=== PATIENT | female | born 1960 | race African-American/Black ===

== ENCOUNTER → 2016-09-28 | Outpatient (CLI) | payer BC | END | disposition home or self-care (01) | LOC: LAB 08:18 | PROVIDERS: ATTEND General Practice | DX: R53.83 Other fatigue (principal); I10 Essential (primary) hypertension ==

== ENCOUNTER → 2016-10-19 | Outpatient (CLI) | payer BC ==
--- NOTE | 2016-10-22 07:49 | MAM ---
History: Well woman exam. Date of exam: 10/19/2016 Services provided: Bilateral full field digital screening mammography. CAD, the images were reviewed with R2 computer aided detection. FINDINGS: Glandular tissue is scattered nodular pattern. No prior study is currently available. Low-density nodules retroareolar left 6:00 approximately 7 cm from the nipple are demonstrated. There are scattered benign-appearing calcifications. No architectural distortion. No mammographic abnormality on the right. IMPRESSION: Incomplete exam Recommendation: Directed left breast sonography. BIRAD CATEGORY: 0 INCOMPLETE Electronically signed by: Annie Mora MD 10/22/2016 7:49 AM CDT
== END | disposition home or self-care (01) ==
LOC: MAMMO 09:51
PROVIDERS: ATTEND General Practice
DX: Z12.31 Encounter for screening mammogram for malignant neoplasm of breast (principal)

== ENCOUNTER → 2016-12-11 | Outpatient (CLI) | payer BC ==
--- NOTE | 2016-12-11 15:40 | US ---
History: Screening evaluation with retroareolar 6:00 left breast nodules. DATE OF SERVICE: 12/11/2016 Services provided: Targeted Limited left breast sonography. FINDINGS: Directed ultrasound examination performed by the technologist is correlated with baseline mammogram from 10/19. The ultrasound examination demonstrates two small benign-appearing nodules with morphology suggestive of lymph nodes in the left breast 6:00. No internal vascularity or sonographic abnormality is shown. Altogether nodules measure 14 mm in size. IMPRESSION: Probably benign exam. Suspected intramammary lymph nodes left breast 6:00. Sonographically benign appearance. Recommendation: Six month follow-up left breast ultrasound. Findings and recommendations were communicated to the patient. BIRAD CATEGORY: 3 PROBABLY BENIGN Electronically signed by: Annie Mora MD 12/11/2016 3:40 PM CDT Workstation: [id number]
== END | disposition home or self-care (01) ==
LOC: MAMMO 14:49
PROVIDERS: ATTEND General Practice
DX: R92.8 Other abnormal and inconclusive findings on diagnostic imaging of breast (principal)

== ENCOUNTER → 2017-10-29 | Outpatient (CLI) | payer BC ==
--- NOTE | 2017-10-30 13:38 | US ---
EXAM DESCRIPTION: Breast,Left: Ultrasound CLINICAL HISTORY: 57 yearsFemale 6 MONTH FOLLOW UP COMPARISON: Digital 3-D tomosynthesis diagnostic bilateral breast on the same visit. Left breast ultrasound 12/11/2016. TECHNIQUE: Transcutaneous scanning of the left breast utilizing two-dimensional and Doppler modes. Scanning performed by the seafood technology specialist and Dr. Wick. FINDINGS: Scanning at the 600 clock position of the left breast 9 cm from the nipple. 5.6 x 3.9 mm hypoechoic structure with central echogenicity and mixed posterior acoustic features. Parallel orientation. Most likely a lymph node. No distinct solid mass or cyst. No parenchymal edema or large calcifications. No abnormal soft tissue vascularity. No skin changes. IMPRESSION: BIRAD CATEGORY: 2 BENIGN Please refer to 3-D tomosynthesis diagnostic bilateral mammographic study and examination on the same visit. The FINDINGS and the FOLLOW-UP plan were reviewed in person with the patient after the examination. Written communication explaining the IMPRESSION and FOLLOW-UP will be mailed to the patient and referring care provider. Electronically signed by: Ramos Wick MD 10/30/2017 1:36 PM CDT
--- NOTE | 2017-10-31 08:29 | MAM ---
EXAM DESCRIPTION: 3D Diagnostic, Bilateral: Digital Mammography CLINICAL HISTORY: 57 yearsFemaleABNORMAL MAMMOGRAM bilateral mass or lymph nodes in the left breast.. COMPARISON: Two-dimensional bilateral breast screening October 19 2016. Diagnostic left breast digital mammography and ultrasound 12/11/2016.. Reports from prior examinations also reviewed. TECHNIQUE: Bilateral CC LM MLO projection full-field images, 3-D tomosynthesis digital mammographic technique. Also bilateral synthesized CC MLO LM full-field images. CAD not utilized. FINDINGS: The breast parenchymal density pattern is: Scattered areas of fibroglandular density. No skin thickening or nipple retraction fibroglandular tissue is nodular bilaterally. Bilateral solitary microcalcifications. Again noted are masslike areas in the middle third of the left breast at the 600 clock position approximately 7 cm from the nipple. No new focal, stellate mass or density, focal asymmetry , and no suspicious microcalcifications bilaterally. Stable mammograms compared to prior study, taking into account differences in mammographic technique Ultrasound: Scanning at the 600 clock position of the left breast 9 cm from the nipple. 5.6 x 3.9 mm hypoechoic structure with central echogenicity and mixed posterior acoustic features. Parallel orientation. Most likely a lymph node. No distinct solid mass or cyst. No parenchymal edema or large calcifications. No abnormal soft tissue vascularity. No skin changes. IMPRESSION: BI-RADS CATEGORY: 2 - BENIGN FINDINGS. FOLLOW UP: Routine digital bilateral screening, one year interval from October 2017. The FINDINGS and the FOLLOW-UP plan were reviewed in person with the patient after the examination. Written communication explaining the IMPRESSION and FOLLOW-UP will be mailed to the patient and referring care provider. According to the [employer], yearly mammograms are recommended starting at age 40 and continuing as long as a woman is in good health. Any breast change noted on a breast self-exam should be reported promptly to the patient's healthcare provider. Breast MRI is recommended for women with an approximately 20-25% or greater lifetime risk of breast cancer, including women with a strong family history of breast or ovarian cancer and women who have been treated for Hodgkin's disease. A negative mammographic report should not delay tissue diagnosis in patients with significant clinical history or physical findings. Extremely dense breast tissue limits the sensitivity of digital mammography. Electronically signed by: Ramos Wick MD 10/31/2017 8:28 AM CDT
== END ==
LOC: MAMMO 08:31
PROVIDERS: ATTEND General Practice
DX: R92.8 Other abnormal and inconclusive findings on diagnostic imaging of breast (principal)
CPT/HCPCS: 76641; 77066; G0279

== ENCOUNTER 2017-11-15 09:58 | Emergency (ER) | payer BC ==
[2017-11-15 10:10] VITALS: TEMP 98
--- NOTE | 2017-11-15 10:25 | ED.PDOC ---
History of Present Illness - General Chief Complaint: Back Pain or Injury Stated Complaint: Upper back discomfort Time Seen by Provider: 11/15/17 10:11 Source: patient Exam Limitations: no limitations Additional Information: C/O PAIN TO L SCAPULAR AREA. PAIN STARTED X 4 DAYS AGO. FELL OFF PORCH 3 DAYS AGO LANDED ON L SHOULDER C/O INCREASING PAIN. NO HEAD TRAUMA NO OTHER C/O'S - History of Present Illness Timing/Duration: other - 4 DAYS Quality/Severity: moderate Back Pain Location: other - L SCAPULAR AREA Improving Factors: nothing Worsening Factors: movement Associated Symptoms: other - NONE, HAS HAD SIMILAR SX'S IN PAST WHICH WERE TREATED WITH MUSCLE RELAXERS. Allergies/Adverse Reactions: Allergies Penicillins Allergy (Verified 11/15/17 10:10) Anaphylaxis Home Medications: Ambulatory Orders Cyclobenzaprine HCl [Flexeril] 10 mg PO TID PRN #15 tab 11/15/17 Indomethacin 50 mg PO TID PRN #14 cap 11/15/17 Review of Systems - Review of Systems Constitutional: Denies: chills, fever EENTM: States: no symptoms reported Respiratory: States: no symptoms reported. Denies: cough, short of breath Cardiology: Denies: chest pain, syncope Gastrointestinal/Abdominal: Denies: abdominal pain, nausea, vomiting Genitourinary: States: no symptoms reported Musculoskeletal: Denies: back pain, neck pain Skin: States: other - C/O SWELLING POST L SCAPULAR AREA. Denies: rash Neurological: Denies: numbness, paresthesia, weakness Endocrine: States: no symptoms reported Hematologic/Lymphatic: States: no symptoms reported Past Medical History (General) - Patient Medical History Hx Stroke: No Hx Congestive Heart Failure: No Hx Hypertension: Yes Hx Diabetes: No Surgical History: gastric bypass, tonsillectomy, Hysterectomy, other - Vaccination History Hx Influenza Vaccination: No Hx Pneumococcal Vaccination: No - Social History Hx Tobacco Use: Yes - 06/30/2017 Family Medical History - Family History Mother Living Status: Hx Family Hypertension: Yes Hx Family Stroke: Yes Physical Exam - Physical Exam General Appearance: Alert, No apparent distress Eyes, Ears, Nose, Throat Exam: PERRL/EOMI, normal ENT inspection, other - NO EVIDENCE OF HEAD TRAUMA Neck Exam: non-tender, full range of motion, normal alignment, normal inspection Cardiovascular/Respiratory: regular rate, rhythm, no M/R/G Gastrointestinal/Abdominal: non tender, soft, no organomegaly Back Exam: normal inspection, other - MILD SPASM L POST SCAPULAR AREA, NO C/T/L SPINE TTP, NO BONY ABN/TTP, Extremity Exam: no evidence of injury, other - NVI, NO EVIDENCE OF EXT TRAUMA Neurologic: no motor/sensory deficits, alert, normal mood/affect Skin Exam: normal color, warm/dry, other - NO ECCHYMOSIS, Progress - EKG/XRAY/CT XRAY: SHOULDER, RUIZ Departure - Departure Clinical Impression: Muscular pain Hypertension Qualifiers: Hypertension type: essential hypertension Qualified Code(s): I10 - Essential ( primary) hypertension Time of Disposition: 11:01 Disposition: Discharge to Home or Self Care Condition: Excellent Departure Forms: ED Discharge - Pt. Copy, Patient Portal Self Enrollment Instructions: DI for Muscle Strain Referrals: Pablo Ortiz MD [Primary Care Provider] - 1-2 Weeks Prescriptions: Cyclobenzaprine HCl [Flexeril] 10 mg PO TID PRN #15 tab PRN Reason: Pain Indomethacin 50 mg PO TID PRN #14 cap PRN Reason: Pain Home Medications: Ambulatory Orders Cyclobenzaprine HCl [Flexeril] 10 mg PO TID PRN #15 tab 11/15/17 Indomethacin 50 mg PO TID PRN #14 cap 11/15/17
[2017-11-15] MEDS ORDERED: KETOROLAC TROMETHAMINE INJ 60 MG/2 ML VIAL IM ONE (10:32)
[2017-11-15] MEDS ORDERED: ORPHENADRINE CITRATE 30 MG/ML AMP IM ONE (10:32)
--- NOTE | 2017-11-15 11:06 | RAD ---
EXAM DESCRIPTION: Shoulder,Left 2 or More Views CLINICAL HISTORY: FALL WITH PAIN SCAPULAR AREA COMPARISON: None. TECHNIQUE: 3 views left FINDINGS: Mild degenerative changes are observed in the acromioclavicular joint. There is minimal subchondral cyst formation in the humeral head at the insertion of the rotator cuff. No fracture or dislocation is seen. IMPRESSION: Degenerative changes are observed in the shoulder. No fracturing is detected. Electronically signed by: Puma Quintero MD 11/15/2017 11:04 AM CDT
[2017-11-15 11:33] VITALS: BP 125/76; O2SAT 100
== END 2017-11-15 11:31 | disposition home or self-care (01) ==
LOC: ER 09:58
DX: M25.512 Pain in left shoulder (principal); I10 Essential (primary) hypertension; Z87.891 Personal history of nicotine dependence
CPT/HCPCS: 73030; J1885; J2360

== ENCOUNTER → 2020-05-25 | Outpatient (CLI) | payer OTHER ==
--- NOTE | 2020-05-26 16:17 | MAM ---
EXAM DESCRIPTION: 3D Screening BILATERAL : Digital Mammography. CLINICAL HISTORY: 60 years Female screening history sheet. Lifetime risk of developing breast cancer (Tyrer-Cuzick model)(%): Not calculated COMPARISON: Bilateral diagnostic digital breast tomosynthesis and left breast ultrasound October 2017. Diagnostic digital breast 2-D imaging and left breast ultrasound December 2016. 2-D screening October 2016. TECHNIQUE: Bilateral CC and MLO projection full-field images, digital tomosynthesis mammographic technique. Bilateral digital 2-D full-field MLO images. CAD available for 2-D images. FINDINGS: The breast parenchymal density pattern is: Scattered areas of fibroglandular density. No skin thickening or nipple retraction. Solitary microcalcifications. Nodular densities in the middle left breast have decreased in size and density since the prior study. Axillary nodes. No new focal, stellate mass or density, focal asymmetry , and no suspicious microcalcifications bilaterally. Stable mammograms compared to prior study. Taking into account, differences in mammographic technique. IMPRESSION: Benign exam. BIRAD CATEGORY: 2 BENIGN FINDINGS. RECOMMENDATIONS: FOLLOW UP: Routine digital bilateral mammographic screening, one year interval from May 2020. Written communication explaining the IMPRESSION and follow-up, will be mailed to the patient and referring health care provider. According to the [employer], yearly mammograms are recommended starting at age 40 and continuing as long as a woman is in good health. Any breast change noted on a breast self-exam should be reported promptly to the patient's healthcare provider. Breast MRI is recommended for women with an approximately 20-25% or greater lifetime risk of breast cancer, including women with a strong family history of breast or ovarian cancer and women who have been treated for Hodgkin's disease. A negative mammographic report should not delay tissue diagnosis in patients with significant clinical history or physical findings. Extremely dense breast tissue limits the sensitivity of digital mammography. Electronically signed by: Ramos Wick MD 05/26/2020 4:15 PM MAILS SUPERVISOR
== END ==
LOC: MAMMO 09:00
PROVIDERS: ATTEND Family Medicine
DX: Z12.31 Encounter for screening mammogram for malignant neoplasm of breast (principal)

== ENCOUNTER 2020-08-26 17:34 | Emergency (ER) | payer OTHER, SELFPAY ==
[2020-08-26] MEDS ORDERED: PANTOPRAZOLE SODIUM IV 40 MG VIAL IV ONE (19:13)
[2020-08-26] MEDS ORDERED: SODIUM CHLORIDE 0.9% 1000ML 1,000 ML IVS ONE (19:13)
[2020-08-26] MEDS ORDERED: PROMETHAZINE HCL INJ 25 MG in SODIUM CHLORIDE 0.9% 50ML 50 ML IVPB ONE (19:13)
--- NOTE | 2020-08-26 21:54 | CT ---
EXAMINATION: CT of the abdomen and pelvis with IV contrast INDICATION: History of gastric bypass. Nausea and vomiting COMPARISON: None. TECHNIQUE: Axial CT scan of the abdomen and pelvis was obtained after the uneventful administration of 50 mL of intravenous contrast. Coronal and sagittal reformats were provided. This CT exam was performed using one or more of the following dose reduction techniques: Automated exposure control, Adjustment of the mA and/or kV according to patient size, Use of iterative reconstruction technique FINDINGS: VISUALIZED LOWER THORAX: Lung bases are clear. Heart is normal in size. LIVER: Normal. GALLBLADDER AND CBD: Cholecystectomy changes. Normal caliber common bile duct. PANCREAS: Normal. SPLEEN: Normal. ADRENAL GLANDS: Normal. KIDNEYS AND URETERS: Normal. URINARY BLADDER: Normal PELVIS: Hysterectomy changes. No free fluid in the pelvis. BOWEL: Gas and stool throughout the colon. Appendix not visualized. No inflammatory changes in the right lower quadrant to suggest acute appendicitis. No dilated loops of small bowel. No obstruction. Bariatric surgery changes are present. AORTA AND VASCULATURE: Minimal atheromatous changes throughout the abdominal aorta. No aneurysm. LYMPH NODES: No pathologically enlarged retroperitoneal, mesenteric, or pelvic lymph nodes. ABDOMINAL WALL: Moderate fat-containing umbilicus hernia MESENTERY/ASCITES: Normal. OSSEOUS STRUCTURES: Moderate multilevel degenerative changes are present throughout the spine. There is grade 1 anterolisthesis of L4 on L5. Moderate degenerative changes of the bilateral hips. OTHER: N/A IMPRESSION: No acute inflammatory process. Electronically signed by: Davidson Trevino MD 08/26/2020 9:52 PM MATERNITY FLOOR SUPERVISOR
[2020-08-26] MEDS ORDERED: cefTRIAXone SODIUM 1 GM in SODIUM CHL 0.9% 50ML MIN-BAG+ 50 ML IVPB ONE (21:58)
[2020-08-26] MEDS ORDERED: metroNIDAZOLE IV PREMIX 500MG 500 MG in PREMIX BAG 1 BAG IVPB ONE (21:58)
[2020-08-26] MEDS ORDERED: SODIUM CHL 0.9% 50ML MIN-BAG+ 50 ML IVPB ONE (22:31)
--- NOTE | 2020-08-26 22:45 | ED.PDOC ---
History of Present Illness - General Chief Complaint: Back Pain or Injury Stated Complaint: left flank pain, vomiting Time Seen by Provider: 08/26/20 17:36 Source: patient Exam Limitations: no limitations - History of Present Illness Initial Comments: The patient is a 60-year-old -[place] female presented emergency room secondary to nausea and vomiting since 3 AM or approximately 19 hours. No blood in the vomitus. No diarrhea. She has had some abdominal cramping but no charo point abdominal pain. No fever. No sore throat or runny nose. No syncope or near syncope. She has some back pain when she is throwing up. The patient had a gastric bypass in 2001. Timing/Duration: other Severity: moderate Improving Factors: nothing Worsening Factors: eating Associated Symptoms: loss of appetite, malaise, nausea/vomiting Allergies/Adverse Reactions: Allergies Penicillins Allergy (Verified 11/15/17 10:10) Anaphylaxis Home Medications: Ambulatory Orders Cyclobenzaprine HCl [Flexeril] 10 mg PO TID PRN #15 tab 11/15/17 Indomethacin 50 mg PO TID PRN #14 cap 11/15/17 Ciprofloxacin [Cipro] 500 mg PO BID #14 tab 08/26/20 Famotidine 20 mg PO DAILY #60 tab 08/26/20 Metronidazole 500 mg PO BID #20 tab 08/26/20 Ondansetron Odt [Zofran ODT] 4 mg PO Q8HR PRN #5 tab 08/26/20 Sucralfate Tab [Carafate Tab] 1 gm PO QID #120 tab 08/26/20 Review of Systems - Review of Systems Constitutional: States: malaise EENTM: States: no symptoms reported Respiratory: States: no symptoms reported Cardiology: States: no symptoms reported Gastrointestinal/Abdominal: States: nausea, vomiting Genitourinary: States: no symptoms reported Musculoskeletal: States: back pain Skin: States: no symptoms reported Neurological: States: no symptoms reported Endocrine: States: no symptoms reported All other Systems: No Change from Baseline Past Medical History (General) - Patient Medical History Hx Stroke: No Hx Congestive Heart Failure: No Hx Hypertension: Yes Hx Diabetes: No - Vaccination History Hx Influenza Vaccination: No Hx Pneumococcal Vaccination: No - Social History Hx Tobacco Use: No - 06/30/2017 Hx Alcohol Use: Yes - beer occ Family Medical History - Family History Mother Living Status: Hx Family Hypertension: Yes Hx Family Stroke: Yes Physical Exam - Physical Exam General Appearance: Alert, Other - Uncomfortable Eye Exam: bilateral normal Ears, Nose, Throat: hearing grossly normal, normal ENT inspection Neck: full range of motion, supple Respiratory: lungs clear, normal breath sounds, no respiratory distress, no accessory muscle use Cardiovascular/Chest: normal peripheral pulses, regular rate, rhythm, no edema Peripheral Pulses: radial,right: 2+, radial,left: 2+ Gastrointestinal/Abdominal: non tender - Surgical scars noted, soft Rectal Exam: deferred Back Exam: no CVA tenderness, no vertebral tenderness Extremity: normal range of motion, non-tender, normal inspection, no pedal edema, normal capillary refill Neurologic: letter sorting machine operator II-XII nml as tested, alert, normal mood/affect, oriented x 3 Skin Exam: normal color Comments: Vital Signs - 24 hr 08/26/20 19:10 Temperature 97.7 F Pulse Rate [ 90 left] Respiratory 16 Rate Blood Pressure 159/96 [Left Arm] O2 Sat by Pulse 98 Oximetry Progress - Progress Progress: 08/26/20 22:45 The patient is a 60-year-old female presented emergency room secondary to slightly less than a days worth of nausea and vomiting. This appears to be acute gastroenteritis. CT scan with IV contrast was done due to history of distant gastric bypass and was reassuring. The patient has received a liter of IV fluids along with acid reducing and nausea medications. She is feeling better at this point. The patient will be written for Carafate and Pepcid for the next month. She will also be written for Zofran for as needed use. The patient also does appear to have a small bacterial urinary tract infection as well as Trichomonas in the urine. She will be treated with ciprofloxacin and metronidazole for these. She will need test of cure in about 3 weeks. Her partner also needs to be tested and treated for trichomonas otherwise she is likely to simply get reinfected. Keep well-hydrated. Maintain a bland diet. Follow-up with primary care doctor early next week. ER warnings are given for any worsening. Patient received first doses of antibiotics here tonight. [email or web address] pereira [phone] - Results/Orders Results/Orders: EKG shows normal sinus rhythm at 83 bpm. Normal axis. Normal R wave progression. No ST segment or T wave changes indicative of acute ischemia. Borderline prolonged QT interval. CT scan of abdomen pelvis shows chronic changes only. No obvious acute pathology. See report for details. Rapid flu and rapid coronavirus are negative. Laboratory Results - last 24 hr 08/26/20 08/26/20 08/26/20 19:57 19:57 19:57 WBC 6.0 RBC 4.93 Hgb 14.4 Hct 42.5 MCV 86.2 MCH 29.3 MCHC 34.0 RDW 13.0 Plt Count 288 MPV 7.6 Absolute Neuts (auto) 4.90 Absolute Lymphs (auto) 0.80 L Absolute Monos (auto) 0.30 Absolute Eos (auto) 0.00 Absolute Basos (auto) 0.00 Neutrophils % 81.2 H Lymphocytes % 13.6 L Monocytes % 4.1 Eosinophils % 0.6 L Basophils % 0.5 PT 10.4 INR 1.05 PTT (SP) 26.3 D-Dimer, Quantitative 1500.0 H* Sodium 139 Potassium 4.2 Chloride 102 Carbon Dioxide 19 L Anion Gap 22.2 H BUN 12 Creatinine 0.72 BUN/Creatinine Ratio 16.7 Random Glucose 125 H Serum Osmolality 278.8 Lactic Acid Calcium 9.4 Magnesium 1.8 Total Bilirubin 1.1 H AST 27 ALT 22 Alkaline Phosphatase 61 Creatine Kinase 85 CK-MB (CK-2) 2.4 CK-MB (CK-2) % Not Reportable Troponin I 0.02 B-Natriuretic Peptide 271.0 H* Serum Total Protein 7.9 Albumin 4.1 Globulin 3.8 H Albumin/Globulin Ratio 1.1 Amylase 64 Lipase 35 Urine Color Urine Appearance Urine pH Ur Specific [place] Urine Protein Urine Glucose (UA) Urine Ketones Urine Blood Urine Nitrite Urine Bilirubin Urine Urobilinogen Ur Leukocyte Esterase Urine RBC Urine WBC Ur Epithelial Cells Urine Bacteria Urine Trichomonas 08/26/20 08/26/20 19:57 20:45 WBC RBC Hgb Hct MCV MCH MCHC RDW Plt Count MPV Absolute Neuts (auto) Absolute Lymphs (auto) Absolute Monos (auto) Absolute Eos (auto) Absolute Basos (auto) Neutrophils % Lymphocytes % Monocytes % Eosinophils % Basophils % PT INR PTT (SP) D-Dimer, Quantitative Sodium Potassium Chloride Carbon Dioxide Anion Gap BUN Creatinine BUN/Creatinine Ratio Random Glucose Serum Osmolality Lactic Acid 1.7 Calcium Magnesium Total Bilirubin AST ALT Alkaline Phosphatase Creatine Kinase CK-MB (CK-2) CK-MB (CK-2) % Troponin I B-Natriuretic Peptide Serum Total Protein Albumin Globulin Albumin/Globulin Ratio Amylase Lipase Urine Color Yellow Urine Appearance Sl cloudy Urine pH 6.0 Ur Specific [place] 1.025 Urine Protein Trace Urine Glucose (UA) Negative Urine Ketones 15 H Urine Blood Trace-intact H Urine Nitrite Negative Urine Bilirubin Negative Urine Urobilinogen 0.2 Ur Leukocyte Esterase Moderate H Urine RBC 1-3 Urine WBC 10-20 H Ur Epithelial Cells 5-10 Urine Bacteria 2+ H Urine Trichomonas 5-10 H Departure - Departure Clinical Impression: Acute gastroenteritis, Mild dehydration, Trichomoniasis of bladder Acute cystitis Qualifiers: Hematuria presence: without hematuria Qualified Code(s): N30.00 - Acute cystitis without hematuria Disposition: Discharge to Home or Self Care Condition: Fair Departure Forms: ED Discharge - Pt. Copy, Patient Portal Self Enrollment Instructions: DI for Low Back Pain, Viral Gastroenteritis, Adult (DC), Trichomoniasis (DC) Diet: bland diet Activity: increase activity as tolerated Referrals: Pablo Ortiz MD [Primary Care Provider] - 1-2 Weeks Prescriptions: Ondansetron Odt [Zofran ODT] 4 mg PO Q8HR PRN #5 tab PRN Reason: Nausea--Moderate Sucralfate Tab [Carafate Tab] 1 gm PO QID #120 tab Ciprofloxacin [Cipro] 500 mg PO BID #14 tab Famotidine 20 mg PO DAILY #60 tab Metronidazole 500 mg PO BID #20 tab Home Medications: Ambulatory Orders Cyclobenzaprine HCl [Flexeril] 10 mg PO TID PRN #15 tab 11/15/17 Indomethacin 50 mg PO TID PRN #14 cap 11/15/17 Ciprofloxacin [Cipro] 500 mg PO BID #14 tab 08/26/20 Famotidine 20 mg PO DAILY #60 tab 08/26/20 Metronidazole 500 mg PO BID #20 tab 08/26/20 Ondansetron Odt [Zofran ODT] 4 mg PO Q8HR PRN #5 tab 08/26/20 Sucralfate Tab [Carafate Tab] 1 gm PO QID #120 tab 08/26/20 Additional Instructions: The patient is a 60-year-old female presented emergency room secondary to slightly less than a days worth of nausea and vomiting. This appears to be acute gastroenteritis. CT scan with IV contrast was done due to history of distant gastric bypass and was reassuring. The patient has received a liter of IV fluids along with acid reducing and nausea medications. She is feeling better at this point. The patient will be written for Carafate and Pepcid for the next month. She will also be written for Zofran for as needed use. The patient also does appear to have a small bacterial urinary tract infection as well as Trichomonas in the urine. She will be treated with ciprofloxacin and metronidazole for these. She will need test of cure in about 3 weeks. Her partner also needs to be tested and treated for trichomonas otherwise she is likely to simply get reinfected. Keep well-hydrated. Maintain a bland diet. Follow-up with primary care doctor early next week. ER warnings are given for any worsening. Patient received first doses of antibiotics here tonight.
[2020-08-26 23:14] VITALS: BP 168/100; TEMP 97.4; O2SAT 95
== END 2020-08-26 23:05 | disposition home or self-care (01) ==
LOC: ER 17:34
DX: K52.9 Noninfective gastroenteritis and colitis, unspecified (principal); A59.03 Trichomonal cystitis and urethritis; N30.00 Acute cystitis without hematuria; E86.0 Dehydration; I10 Essential (primary) hypertension; Z20.822 Contact with and (suspected) exposure to COVID-19; Z79.899 Other long term (current) drug therapy; Z88.0 Allergy status to penicillin; Z87.891 Personal history of nicotine dependence
CPT/HCPCS: 36415; 74177; 80053; 81001; 82150; 82550; 82553; 83605; 83690; 83735; 83880; 84443; 84484; 85025; 85379; 85610; 85730; 87086; 87088; 87186; 87502; 87635; 93005; A4216; J0696; J2550; J3490; J7030; J7050